=== PATIENT | male | born 1940 | race Two or more races ===

== ENCOUNTER → 2025-02-17 | Outpatient (CLI) | payer MEDICARE, SELFPAY ==
[2025-02-17 12:19] LABS: Basophils % (Auto) 1 % (0-2.5); Eosinophils # (Auto) 0.1 Thou/mm3 (0.0-0.5); Eosinophils % (Auto) 2 % (0-10); Hematocrit 37.7 % (41.0-53.0); Hemoglobin 12.4 g/dL (13.5-16.0); Immature Granulocytes % (Auto) 0 % (0-0); Immature Granulocytes Auto 0.01 Thou/mm3 (0.00-0.00); Lymphocytes # (Auto) 1.9 Thou/mm3 (1.0-4.8); Lymphocytes % (Auto) 32 % (10-50); Mean Corpuscular HGB Conc 32.9 g/dl (31.0-37.0); Mean Corpuscular Hemoglobin 29.2 pg (25.0-35.0); Mean Corpuscular Volume 89 fL (80-100); Monocytes # (Auto) 0.4 Thou/mm3 (0.0-0.8); Monocytes % (Auto) 7 % (0-12); Neutrophils # (Auto) 3.4 Thou/mm3 (1.8-7.7); Neutrophils % (Auto) 58 % (37-80); Nucleated Red Blood Cell % 0 /100 WBC (0); Platelet Count 212 Thou/mm3 (140-440); RDW Standard Deviation 44.3 fL (35.1-43.9); Red Blood Count 4.24 Miln/mm3 (4.50-5.90); White Blood Count 5.8 Thou/mm3 (3.8-10.6)
[2025-02-17 12:32] LABS: Glucose Estimated Average 180 mg/dL (80-131); Hemoglobin A1C 7.9 % Hgb (4.8-6.0)
[2025-02-17 12:35] LABS: Prostate Specific Antigen < 0.10 ng/mL (0-4.00)
[2025-02-17 12:50] LABS: Alanine Aminotransferase 9 U/L (10-49); Albumin, Serum 4.3 gm/dL (3.4-4.8); Albumin/Globulin Ratio 1.7 (1.2-2.2); Alkaline Phosphatase 61 U/L (46-116); Anion Gap 8 (7-16); Aspartate Amino Transferase 20 U/L (0-34); BUN/Creatinine Ratio 18 Ratio (12-20); Bilirubin,Total 0.6 mg/dL (0.3-1.2); Blood Urea Nitrogen 37 mg/dL (9-23); Calcium 9.2 mg/dL (8.3-10.6); Calcium (Corrected) 9.2 mg/dL (8.5-10.1); Cardiac Risk Estimate 3.9 RATIO (4.0-6.7); Chloride 109 mMol/L (98-107); Cholesterol 124 mg/dL (132-200); Creatinine (Component) 2.1 mg/dL (0.6-1.3); Globulin 2.5 gm/dL (2.3-3.5); Glucose 144 mg/dL (74-106); HDL Cholesterol 32 mg/dL (40-60); LDL Cholesterol,Calculated 73 mg/dL (0-130); Osmolality,Calculated 292 (275-295); Potassium 4.6 mMol/L (3.4-5.1); Sodium 141 mMol/L (136-145); Thyroid Stimulating Hormone 1.52 uIU/mL (0.55-4.78); Total Protein 6.8 gm/dL (5.7-8.2); Triglycerides 97 mg/dL (30-150); eGFR 31 See Note
== END | disposition home or self-care (01) ==
LOC: COPL 10:48
PROVIDERS: PCP Family Medicine; Referring Provider Family Medicine; Visit Provider Family Medicine
DX: E11.65 Type 2 diabetes mellitus with hyperglycemia (principal); R97.20 Elevated prostate specific antigen [PSA]; R94.6 Abnormal results of thyroid function studies
CPT/HCPCS: 36415; 80053; 80061; 83036; 84153; 84443; 85025

== ENCOUNTER → 2025-03-30 | Outpatient (CLI) | payer MEDICARE, SELFPAY ==
--- NOTE | 2025-03-30 14:35 | XR_ITS ---
Examination: Knee, right , 3 views Technique: Knee AP, lateral, oblique 3 views Date and time of exam: March 30, 2025 1453 hours INDICATIONS: Right knee pain beginning 2 days ago. FINDINGS: Mild tricompartment osteoarthritis Small knee effusion No fracture IMPRESSION: Mild tricompartment osteoarthritis
== END | disposition home or self-care (01) ==
LOC: CDIM 14:06
PROVIDERS: PCP Family Medicine; Referring Provider Family Medicine; Visit Provider Family Medicine
DX: M17.11 Unilateral primary osteoarthritis, right knee (principal)
CPT/HCPCS: 73562

== ENCOUNTER 2025-11-06 13:21 | Emergency (ER) | payer MEDICARE, SELFPAY ==
[2025-11-06 13:52] VITALS: BP 178/83; BP 186/94; PULSE 73; RESP 20; TEMP 36.7; O2SAT 97
--- NOTE | 2025-11-06 14:01 | XR_ITS ---
Examination: CT brain head without contrast. 2-D sagittal coronal reconstructions Date and time of exam: November 06, 2025, 1412 hours INDICATIONS: Patient fell today with injury to the head, head pain CTDI: vol (mGy): 53.9 DLP: (mGycm): 1094 Technique: Multiple CT axial sections of the brain have been obtained, 5 mm slice thickness. Contrast has not been administered. 2-D sagittal, coronal reconstructions have been obtained Low dose protocols were performed. One or more of the following dose reduction techniques were used; automated exposure control, adjustment of the mA and/or KV according to patient size, use of iterative reconstruction technique. Findings: No significant ventricular enlargement. Intra-axial or extra-axial hemorrhage density is not seen. No mass effect or midline shift Basal cisterns are not remarkable. Fourth ventricle is midline. Cranial vault intact. Significant ethmoid left sphenoid sinusitis as well as right maxillary sinusitis Impression: Negative for acute hemorrhage, mass effect or midline shift
--- NOTE | 2025-11-06 14:01 | XR_ITS ---
Examination: CT cervical spine without contrast 2-D sagittal reconstructions 2-D coronal reconstructions 3-D reconstructions. Exam date and time: November 06, 2025, 1412 hours INDICATIONS: Ground-level fall today with injury to the neck, neck pain CTDI:vol (mGy) 16.9 DLP: (mGycm) 371 Technique: Multiple 2 mm axial sections of the cervical spine have been obtained. The coronal and sagittal reconstructions have been obtained. 3-D reconstructions have been obtained. Low dose protocols were performed. One or more of the following dose reduction techniques were used; automated exposure control, adjustment of the mA and/or KV according to patient size, use of iterative reconstruction technique. Findings: Axial sections demonstrate intact base of the skull. C1 exhibit satisfactory relationship to the odontoid. No acute cervical vertebral body fracture seen. Alignment posterior spinous processes satisfactory. Moderate cervical spondylosis Diffuse cervical degenerative disc disease most severe L3-L4 C6-C7 Impression: No acute cervical fracture.
--- NOTE | 2025-11-06 14:03 | EDNOTE_ITS ---
ED Fall Injury RME/HPI General Chief Complaint: Fall Stated Complaint: PT FELL & HIT BACK OF HEAD. PT SPEECH SLURRED Time Seen by Provider: 11/06/25 13:47 Arrival date/time: 11/06/25 13:21 This is an 85-year-old male that comes into the emergency room with complaints bending over while letting the chickens out and hit the back of his head when he was standing back up. Patient states he struck his back of the head and posterior neck. Patient complains of a headache and some neck pain. Per patient's daughter patient was slightly confused but patient is back to baseline according to daughter. Patient has no focal deficits. Patient speaking in clear sentences. Patient denies any nausea vomiting. Patient denies any loss of consciousness. Related Data Home Medications ?Medication ?Instructions ?Recorded ?Confirmed amlodipine 10 mg tablet 10 mg PO QDAY 10/29/1911/12 benazepril 40 mg tablet 40 mg PO QDAY 10/29/1911/12 acetaminophen 500 mg capsule 500 mg PO QID PRN pain 11/12/25 clonazepam 1 mg tablet 1 mg PO HS 11/12/25 11/12/25 linagliptin 5 mg tablet (Tradjenta) 5 mg PO QDAY 11/1211/12/25 Previous Rx's ?Medication ?Instructions ?Recorded aspirin 81 mg tablet,delayed 81 mg PO DAILY 1 month #3 0 tabs 11/12/25 release Allergies Allergy/AdvReac Type Severity Reaction Status Date / Time No Known Allergies Allergy Verified 11/09/25 11:17 Review of Systems Review of Systems Systems Reviewed: All systems reviewed, normal except as documented Past Medical History Past Medical History Comments [facility] COMMENT: Reports history of high blood pressure and diabetes ED Exam Narrative Physical exam: VITAL SIGNS: Reviewed. GENERAL APPEARANCE: Alert and interactive, follows commands, no acute distress HEAD AND FACE: Contusion to the occipital area, mild abrasion ENT: PERRL, conjuctiva pink and clear, eyelid no trauma, Mucous membrane moist. NECK: Supple, nontender, no nuchal rigidity. CHEST: No tenderness, no crepitus, no paradoxical movement, no retractions. LUNGS: breathing even and unlabored HEART: Regular rate, cap refill less than 2 seconds ABDOMEN: Soft, nondistended, nontender to palpation NEUROLOGICAL: Gross motor function intact sensory function intact, Appropriate for age. MUSCULOSKELETAL: low back nontender, full range of motion. no midline tenderness, no meningismus, no step offs EXTREMITIES: No redness no swelling no skin breakdown on bilateral foot and leg. Distal neurovascular status intact bilateral foot SKIN: Color pink, dry, Course Quality Measures none Orders Category Date Time Status Wound Care NOW Care 11/06/25 16:[address] cervical spine wo con Stat Exams 11/06/25 14:[address] head/brain wo con Stat Exams 11/06/25 14:01 Completed Acetaminophen Tab [Tylenol ES Tab] Med 11/06/25 16:47 Discontinued 1,000 mg PO X1 ONE Vital Signs Vital signs: Vital Signs Temperature 98.1 F 11/06/25 13:52 Pulse Rate 73 11/06/25 13:52 Respiratory Rate 20 11/06/25 13:52 Blood Pressure 178/83 H 11/06/25 13:52 Pulse Oximetry (%) 97 11/06/25 13:52 Oxygen Delivery Method Room Air 11/06/25 13:52 Fall MDM Narrative MDM Narrative:: cervical spine ct : Findings: Axial sections demonstrate intact base of the skull. C1 exhibit satisfactory relationship to the odontoid. No acute cervical vertebral body fracture seen. Alignment posterior spinous processes satisfactory. Moderate cervical spondylosis Diffuse cervical degenerative disc disease most severe L3-L4 C6-C7 Impression: No acute cervical fracture. head ct: Findings: No significant ventricular enlargement. Intra-axial or extra-axial hemorrhage density is not seen. No mass effect or midline shift Basal cisterns are not remarkable. Fourth ventricle is midline. Cranial vault intact. Significant ethmoid left sphenoid sinusitis as well as right maxillary sinusitis Impression: Negative for acute hemorrhage, mass effect or midline shift patient ambulatory. Patient has no focal deficits. Patient complains of a mild headache where he hit his head. Did not appreciate any slurred speech patient states that he has not had slurred speech according to family member patient really just did not want to talk. Reviewed CAT scan with patient and family member. Patient to told to follow-up with primary provider in 1 to 2 days. to the emergency room symptoms change or worsen patient and family member verbalized understanding and feel comfortable plan of care. Patient data External records reviewed:: [facility] previous records Clinical information provided by:: patient Social determinants that could affect healthcare access:: none Patient has the following chronic illnesses:: See note How is presenting disease/condition affected by chronic disease/condition?: no chronic disease Evaluation data The following diagnostics were reviewed and interpreted by me:: radiology exam(s) Lab and/or radiology exams considered but not ordered:: None Interpretation Summary: See note Medications / Prescriptions Medications or Prescriptions considered but not ordered:: None Medication administrations:: Medication Administration History Discontinued Medications Acetaminophen (Acetaminophen 500 Mg Tablet) 1,000 mg PO X1 ONE Stop: 11/06/25 16:48 Last Admin: 11/06/25 17:24 Dose: 1,000 mg Documented By: OA See MAR Consultations Consultation(s) initiated? (list below): No Diagnosis Fall Differential Diagnosis: syncope and other (Contusion, abrasion, laceration) Most likely diagnosis given after review of the tests above:: Contusion Admission Indicated Admission indicated?: not indicated Admission Request Was there a request for admission?: No Disposition Plan Disposition Plan: Discharge Discharge Attestation Discharge Attestation: The patient and all family members were given an opportunity to ask questions and understood the discharge instructions. Discharge instructions specifically effects, indications for sooner follow up or return to the emergency department, and the expected course of current diagnosis. Patient condition: Stable Discharge Plan Plan Patient Disposition: HOME (Self Care) Patient condition on transfer: Stable Prescriptions/Referrals Prescriptions/Med Rec: No Action amlodipine 10 mg Tablet 10 mg PO QDAY benazepril 40 mg Tablet 40 mg PO QDAY Tradjenta 5 mg tablet 5 mg PO QDAY Patient Comments: TAKE 1 TABLET BY MOUTH EVERY DAY clonazepam 1 mg tablet 1 mg PO HS Patient Comments: TAKE 1 TABLET BY MOUTH AT BEDTIME NEEDED FOR ANXIETY acetaminophen 500 mg capsule 500 mg PO QID PRN (Reason: pain) aspirin 81 mg Tablet,Delayed Release (Dr/Ec) 81 mg PO DAILY 30 Days Qty: 30 1RF Referrals: George Silva MD [Primary Care Provider, Family Practice] - In 1 week Problem List Clinical Impression: Contusion of neck, Contusion of head Patient/Caregiver Discharge Instructions Discharge Activity: activity as tolerated Education Materials: ED Head Injury (Adult) Additional Instructions: Julianna un neri con carson medico de cabecera en las proximas 24-48 horas. Regrese a la shi de emergencias si hay evidencia de que los signos o sintomas empeoran. Print Language: Chinese Stand Alone Forms: [employer] Award Info., Patient Portal Info Letter PA/FARM FACILITY MANAGER Supervising Physician PA/FARM FACILITY MANAGER Supervising Physician: shayy
--- NOTE | 2025-11-06 15:19 | PRELIM_ITS ---
CT scan of the head without intravenous contrast (axial sections with sagittal and coronal reformats) November 06, 2025 1412 hours Clinical History: Trauma Comparison: No prior study is available for comparison. Findings: There is no evidence of intracranial hemorrhage, mass effect or midline shift. There are periventricular white matter hypodensities, compatible with chronic small vessel ischemia. The CSF spaces are prominent consistent with volume loss. The calvarium is intact. There is mild mucosal thickening in bilateral ethmoid and right maxillary sinuses. There is moderate mucosal thickening in left sphenoid sinus. The mastoid air cells and the other visualized paranasal sinuses are clear. Impression: No evidence of intracranial hemorrhage, midline shift or calvarial fracture. Sinus disease as described above. Report Electronically Signed By: Beverly Anderson 11/06/2025 3:18:45 PM [EST]
--- NOTE | 2025-11-06 15:23 | PRELIM_ITS ---
CT scan of the cervical spine without intravenous contrast (axial sections with sagittal and coronal reformats) November 06, 2025 1412 hours Clinical History: trauma Comparison: No prior study is available for comparison. Findings: The bones are osteopenic. There is no fracture or traumatic subluxation. There is grade1 anterolisthesis of C4 on C5. There is partial fusion of the facet joints from C2 - C3 level. There is partial ossification of the nuchal ligament at the C4-C5 level. There are multilevel degenerative changes in the form of marginal osteophytes, decreased disc height, C3-C4 through C6-C7 disc osteophyte complexes are noted with associated uncinate hypertrophy and facet arthropathy causing mild spinal canal stenosis and bilateral neural foraminal stenosis. The prevertebral soft tissues are unremarkable. Impression: No evidence of fracture or traumatic subluxation. Degenerative changes as described above. Report Electronically Signed By: Beverly Anderson 11/06/2025 3:22:35 PM [EST]
[2025-11-06] MEDS: ACETAMINOPHEN 500 MG TABLET 1000 MG PO (17:24)
[2025-11-06 17:25] VITALS: BP 124/82; PULSE 78
== END 2025-11-06 17:25 | disposition home or self-care (01) ==
PROVIDERS: Emergency Provider Emergency Medicine; PCP Family Medicine
DX: S10.93XA Contusion of unspecified part of neck, initial encounter (principal); S00.93XA Contusion of unspecified part of head, initial encounter; W22.8XXA Striking against or struck by other objects, initial encounter; Y93.89 Activity, other specified
CPT/HCPCS: 70450; 72125; 99282; A9270

== ENCOUNTER 2025-11-09 11:13 | Emergency (ER) | payer MEDICARE, SELFPAY ==
[2025-11-09 11:14] VITALS: BMI 30.2
--- NOTE | 2025-11-09 11:21 | PD.EDADULT ---
ED General RME/HPI General Chief complaint: Fall Stated complaint: DIZZY WEAK NECK/BACK PAIN S/P FALL Time Seen by Provider: 11/09/25 11:15 Related Data Home Medications ?Medication ?Instructions ?Recorded ?Confirmed metformin 500 mg tablet,extended 500 mg PO DAILY ##0 03/15/10 05/28/22 release 24 hr (Glucophage XR) amlodipine 10 mg tablet 10 mg PO QDAY 10/29/19 05/28/22 benazepril 40 mg tablet 40 mg PO QDAY 10/29/19 05/28/22 gabapentin 100 mg capsule 200 mg PO QDAY 10/29/19 05/28/22 furosemide 40 mg tablet 40 mg PO QDAY 12/21/21 05/28/22 Allergies Allergy/AdvReac Type Severity Reaction Status Date / Time No Known Allergies Allergy Verified 11/09/25 11:17 Past Medical History Past Medical History NEUROLOGIC: Negative Neurological Disorders or Seizures CARDIAC: Positive Cardiac Disorders, Angina, Hypercholesterolemia and Hypertension; Negative Congestive Heart Failure RESPIRATORY: Negative Chronic Obstructive Pulmonary Disease (COPD) GASTROINTESTINAL: Positive Gastrointestinal Disorders GENITOURINARY: Negative Genitourinary Disorders or Renal Disease MUSCULOSKELETAL: Positive Musculoskeletal Disorders, Arthritis and Gout ENT: Positive Cataracts ENDOCRINE: Positive Endocrine Disorders and Diabetes Mellitus Type 2; Negative Diabetes Mellitus Type 1 HEMATOLOGIC: Negative Blood Disorders or Anemia PSYCHO/SOCIAL: Positive Depression and Anxiety OTHER HISTORY: Negative Hospitalization, Falls, Blood Transfusions, Anesthesia Reactions or Cancer Social History SMOKING STATUS: Never smoker Course Course Course Narrative: I examined the wrist, the patient has had no other complaints prior to stop talking to me. Patient is medically cleared for incarceration. Quality Measures none Orders Category Date Time Status Bedside COVID-19 Antigen Test NOW Care 11/09/25 12:00 Completed Bedside Influenza A&B Antigen Test NOW Care 11/09/25 12:00 Completed EKG (ED ONLY) *Do not use* NOW Care 11/09/25 12:[address] head/brain wo con Stat Exams 11/09/25 12:00 Completed EKG (ED Only) Stat Exams 11/09/25 12:00 Draft XR chest 1V portable Stat Exams 11/09/25 12:00 Completed Ammonia Stat Lab 11/09/25 12:53 Completed BNP [B-Type Natriuretic Peptide] Stat Lab 11/09/25 12:53 Completed Beta Hydroxybutyrate Stat Lab 11/09/25 12:53 Completed Bilirubin,Direct Stat Lab 11/09/25 12:53 Completed CBC Stat Lab 11/09/25 12:53 Completed CMP [Comprehensive Metabolic Panel] Stat Lab 11/09/25 12:53 Completed CRP [C-Reactive Protein] Stat Lab 11/09/25 12:53 Completed ESR [Sed Rate (ESR)] Stat Lab 11/09/25 12:53 Completed Hemoglobin A1C [Glycohemoglobin w (eAG)] Stat Lab 11/09/25 12:53 Completed Magnesium Stat Lab 11/09/25 12:53 Completed Procalcitonin Stat Lab 11/09/25 12:53 Completed TSH [Thyroid Stimulating Hormone] Stat Lab 11/09/25 12:53 Completed Troponin I Stat Lab 11/09/25 12:53 Completed UA, C/S IF [Urinalysis, C/S if Indicated] Stat Lab 11/09/25 14:39 Completed ACETAMINOPHEN w/COD 300-30 [Tylenol w/Cod #3] Med 11/09/25 11:59 Discontinued 2 tab PO X1 ONE Ondansetron Odt [Zofran Odt] Med 11/09/25 11:59 Discontinued 4 mg PO X1 ONE Vital Signs Vital signs: Vital Signs Temperature 97.5 F 11/09/25 11:46 Pulse Rate 62 11/09/25 11:46 Respiratory Rate 20 11/09/25 11:46 Blood Pressure 158/72 H 11/09/25 11:46 Pulse Oximetry (%) 97 11/09/25 11:46 Oxygen Delivery Method Room Air 11/09/25 11:46 Discharge Plan Plan Patient Disposition: HOME (Self Care) Patient condition on transfer: Stable Prescriptions/Referrals Prescriptions/Med Rec: No Action furosemide 40 mg tablet 40 mg PO QDAY metformin [Glucophage XR] 500 MG tablet extended release 24 hr 500 mg PO DAILY Qty: 0 amlodipine 10 mg Tablet 10 mg PO QDAY gabapentin 100 mg Capsule 200 mg PO QDAY benazepril 40 mg Tablet 40 mg PO QDAY Problem List Clinical Impression: Concussion Patient/Caregiver Discharge Instructions Discharge Activity: activity as tolerated Education Materials: ED Concussion Additional Instructions: Discharge Instructions from Dr. Oneil printed for you: 1. After evaluation, there is no life-threatening condition. Such as stroke or brain tumor or intracranial bleeding or heart attack. 2. The symptoms of weakness and confusion are due to concussion. We can potentially have the symptoms for weeks and months. 3. Slowly increase physical activity daily. Prolonged inactivity is terrible for the body. 4. Eat regular nutritious meals. For good hydration, increase oral fluid and maintain clear urine. If dark or yellow, increase oral fluid. 5. See a private doctor on 11/11/2025 for recheck. Ask to review all test results and official radiology reports, to make sure you receive all necessary follow-ups and monitoring. Ask for help until we are completely better. 6. Seek immediate medical care with worsening or with any concerns. Print Language: Pakistani Stand Alone Forms: [employer] Award Info., Patient Portal Info Letter MDM Medication Administration(s) Medication Administration History Discontinued Medications Acetaminophen/Codeine Phosphate (Acetaminophen W/Cod 300-30 Tablet) 2 tab PO X1 ONE Stop: 11/09/25 12:00 Last Admin: 11/09/25 13:31 Dose: 2 tab Documented By: Ondansetron HCl (Ondansetron Odt 4 Mg Tabrap) 4 mg PO X1 ONE; Protocol Stop: 11/09/25 12:00 Last Admin: 11/09/25 13:30 Dose: 4 mg Documented By:
[2025-11-09 11:46] VITALS: BP 158/72; PULSE 62; RESP 20; TEMP 36.4; O2SAT 97; BMI 30.5
--- NOTE | 2025-11-09 12:00 | XR_ITS ---
Study: Chest 1 view. INDICATION: Shortness of breath for 5 days. FINDINGS: A PA upright chest radiograph at 1210 hours 09 November 2025 demonstrates fully expanded lungs free from alveolar infiltrates or nodules. There are no effusions. The heart is normal in size and contour. The aortic arch is calcified and the descending segment is tortuous. Peripheral vascularity is normal in appearance. Superior mediastinal structures are narrow. There is no hilar adenopathy. IMPRESSION: No acute diagnostic abnormality.
--- NOTE | 2025-11-09 12:00 | EKG_ITS ---
[facility] Test Date: 2025-11-09 Pat Name: QASIM OLIVO Department: Room: - Gender: Male Molder Inflated Ball: : 1940 Requested By: Kilo Larson Order Number: [id number] Reading MD: Kilo Larson Measurements Intervals Allison Rate: 57 P: 8 FL: 188 QRS: -42 QRSD: 174 T: 134 QT: 448 QTc: 440 Interpretive Statements SINUS BRADYCARDIA WITH OCCASIONAL VENTRICULAR PREMATURE COMPLEXES LEFT AXIS DEVIATION [QRS AXIS < -30] LEFT BUNDLE BRANCH BLOCK [120+ ms QRS DURATION, 80+ ms Q/S IN V1/V2, 85+ ms R IN I/aVL/V5/V6] No previous ECG available for comparison /[id number]/[email or web address]/[id number].pdf
--- NOTE | 2025-11-09 12:00 | XR_ITS ---
Study: Head CT. INDICATION: Pain in laceration at top of head following a fall this day. TECHNIQUE: 5 mm slice thickness without contrast. 5 mm sagittal and coronal reformats. 3D surface reconstruction of the skull with rotating presentation. Radiation dose 1022 mGy centimeters with dose reduction technique. 326 images at 1258 hours 09 November 2025. FINDINGS: The lateral ventricles are normal in size and contour. There is no midline shift, intracranial bleed, mass, cortical edema. A few punctate calcifications are noted reflecting old granulomatous or parasitic exposure. There is mild frontoparietal cortical atrophy. The white-galindo junctions are well seen. There is no focal lesion of the brainstem or cerebellum. The scalp, skull, sinuses and mastoid air cells are normal. The sella turcica and its contents are normal. Mild calcification is noted at the cavernous carotid arteries. IMPRESSION: 1. No acute diagnostic abnormality. 2. Old granulomatous or parasitic exposure. 3. Atherosclerotic disease.
--- NOTE | 2025-11-09 12:04 | PD.EDFALL ---
ED Fall Injury RME/HPI General Chief Complaint: Fall Stated Complaint: DIZZY WEAK NECK/BACK PAIN S/P FALL Time Seen by Provider: 11/09/25 11:15 Arrival date/time: 11/09/25 11:13 RME / HPI RME / HPI Narrative: See [facility] for Dr. Oneil's HPI documentation. Related Data Home Medications ?Medication ?Instructions ?Recorded ?Confirmed metformin 500 mg tablet,extended 500 mg PO DAILY ##0 03/15/10 05/28/22 release 24 hr (Glucophage XR) amlodipine 10 mg tablet 10 mg PO QDAY 10/29/19 05/28/22 benazepril 40 mg tablet 40 mg PO QDAY 10/29/19 05/28/22 gabapentin 100 mg capsule 200 mg PO QDAY 10/29/19 05/28/22 furosemide 40 mg tablet 40 mg PO QDAY 12/21/21 05/28/22 Allergies Allergy/AdvReac Type Severity Reaction Status Date / Time No Known Allergies Allergy Verified 11/09/25 11:17 Review of Systems Review of Systems Systems Reviewed: All systems reviewed, normal except as documented Past Medical History Past Medical History CARDIAC: Positive Cardiac Disorders, Angina, Hypercholesterolemia and Hypertension GASTROINTESTINAL: Positive Gastrointestinal Disorders MUSCULOSKELETAL: Positive Musculoskeletal Disorders, Arthritis and Gout ENT: Positive Cataracts ENDOCRINE: Positive Endocrine Disorders and Diabetes Mellitus Type 2 PSYCHO/SOCIAL: Positive Depression and Anxiety Social History SMOKING STATUS: Never smoker ED Exam Narrative Physical exam: See [facility] for Dr. Oneil's physical exam documentation. Course Quality Measures none Orders Category Date Time Status Bedside COVID-19 Antigen Test NOW Care 11/09/25 12:00 Completed Bedside Influenza A&B Antigen Test NOW Care 11/09/25 12:00 Completed EKG (ED ONLY) *Do not use* NOW Care 11/09/25 12:[address] head/brain wo con Stat Exams 11/09/25 12:00 Completed EKG (ED Only) Stat Exams 11/09/25 12:00 Draft XR chest 1V portable Stat Exams 11/09/25 12:00 Completed Ammonia Stat Lab 11/09/25 12:53 Completed BNP [B-Type Natriuretic Peptide] Stat Lab 11/09/25 12:53 Completed Beta Hydroxybutyrate Stat Lab 11/09/25 12:53 Completed Bilirubin,Direct Stat Lab 11/09/25 12:53 Completed CBC Stat Lab 11/09/25 12:53 Completed CMP [Comprehensive Metabolic Panel] Stat Lab 11/09/25 12:53 Completed CRP [C-Reactive Protein] Stat Lab 11/09/25 12:53 Completed ESR [Sed Rate (ESR)] Stat Lab 11/09/25 12:53 Completed Hemoglobin A1C [Glycohemoglobin w (eAG)] Stat Lab 11/09/25 12:53 Completed Magnesium Stat Lab 11/09/25 12:53 Completed Procalcitonin Stat Lab 11/09/25 12:53 Completed TSH [Thyroid Stimulating Hormone] Stat Lab 11/09/25 12:53 Completed Troponin I Stat Lab 11/09/25 12:53 Completed UA, C/S IF [Urinalysis, C/S if Indicated] Stat Lab 11/09/25 14:39 Completed ACETAMINOPHEN w/COD 300-30 [Tylenol w/Cod #3] Med 11/09/25 11:59 Discontinued 2 tab PO X1 ONE Ondansetron Odt [Zofran Odt] Med 11/09/25 11:59 Discontinued 4 mg PO X1 ONE Vital Signs Vital signs: Vital Signs Temperature 97.5 F 11/09/25 11:46 Pulse Rate 62 11/09/25 11:46 Respiratory Rate 20 11/09/25 11:46 Blood Pressure 158/72 H 11/09/25 11:46 Pulse Oximetry (%) 97 11/09/25 11:46 Oxygen Delivery Method Room Air 11/09/25 11:46 Pulse ox is 97% on room air which is adequate. Fall MDM Narrative MDM Narrative:: This section includes all my notes and documentations, including HPI, PE, and ED course. Kilo Oneil MD HPI: 85-year-old male here with continued confusion and generalized weakness and headache and dizziness after falling with head injury several days ago. No speech or visual impairment. No loss of power in the arms or legs. No other complaints. ROS: All negative except as documented in HPI. Physical Exam: General:? Alert and oriented.? No acute distress.? Eyes:? Conjunctivae and lids clear.? EOMI.? PERRL. ENT:? No signs of head trauma. Neck:? Supple.? No tenderness. Heart:? RRR. Lungs:? No respiratory distress.? Good air movement.? No rhonchi, wheezing, rales.? Chest:? No tenderness. Abdomen:? Soft and nontender.? Normal bowel sounds.? No distension.? No rebound or guarding.? Back:? No tenderness.? Skin:? Warm and dry.? Neuro:? Alert and oriented X 3.? Cranial Nerves II-XII grossly intact.? No peripheral motor deficits. Musculoskeletal:? All major joints and bones are not tender with no limited ROM. I reviewed all diagnostic test results: My interpretation of the EKG is: Sinus bradycardia (57 bpm) with nonspecific ST-T changes.? My interpretation of the chest x-ray is: NAD. My review of the head CT report is NAD. Blood tests and urine tests unremarkable. Covid/Influenza are negative. At this point, diagnoses include: Concussion Treatment here included: Zofran ODT 4 mg Tylenol #3 X 2 He felt much better. Recommended supportive care. Based on my best medical judgment, made decision no further evaluation or treatment indicated at this time. Patient and family understands and agrees to the discharge instructions customized and printed, see below. Discharge Instructions from Dr. Oneil printed for you: 1. After evaluation, there is no life-threatening condition. Such as stroke or brain tumor or intracranial bleeding or heart attack. 2. The symptoms of weakness and confusion are due to concussion. We can potentially have the symptoms for weeks and months. 3. Slowly increase physical activity daily. Prolonged inactivity is terrible for the body. 4. Eat regular nutritious meals. For good hydration, increase oral fluid and maintain clear urine. If dark or yellow, increase oral fluid. 5. See a private doctor on 11/11/2025 for recheck. Ask to review all test results and official radiology reports, to make sure you receive all necessary follow-ups and monitoring. Ask for help until we are completely better. 6. Seek immediate medical care with worsening or with any concerns. Kilo Oneil MD Patient data External records reviewed:: [facility] previous records Clinical information provided by:: patient Social determinants that could affect healthcare access:: none Patient has the following chronic illnesses:: Hypertension How is presenting disease/condition affected by chronic disease/condition?: uneffected by Evaluation data The following diagnostics were reviewed and interpreted by me:: lab results, radiology exam(s) and EKG tracing(s) (My interpretation of the EKG is: Sinus bradycardia (57 bpm) with nonspecific ST-T changes.? Kilo Oneil MD) Lab and/or radiology exams considered but not ordered:: None Interpretation Summary: I reviewed all diagnostic test results: My interpretation of the EKG is: Sinus bradycardia (57 bpm) with nonspecific ST-T changes.? My interpretation of the chest x-ray is: NAD. My review of the head CT report is NAD. Blood tests and urine tests unremarkable. Covid/Influenza are negative. Medications / Prescriptions Medications or Prescriptions considered but not ordered:: None Medication administrations:: Medication Administration History Discontinued Medications Acetaminophen/Codeine Phosphate (Acetaminophen W/Cod 300-30 Tablet) 2 tab PO X1 ONE Stop: 11/09/25 12:00 Last Admin: 11/09/25 13:31 Dose: 2 tab Documented By: Ondansetron HCl (Ondansetron Odt 4 Mg Tabrap) 4 mg PO X1 ONE; Protocol Stop: 11/09/25 12:00 Last Admin: 11/09/25 13:30 Dose: 4 mg Documented By: Treatment here included: Zofran ODT 4 mg Tylenol #3 X 2 Consultations Consultation(s) initiated? (list below): No Diagnosis Fall Differential Diagnosis: syncope, concussion with loss of consciousness and concussion without loss of consciousness Most likely diagnosis given after review of the tests above:: At this point, diagnoses include: Concussion Admission Indicated Admission indicated?: not indicated Explain why admission is indicated or not indicated:: With significant improvement and no condition needing emergent intervention, there was no indication for admission. Admission Request Was there a request for admission?: No Disposition Plan Disposition Plan: Discharge Discharge Attestation Discharge Attestation: The patient and all family members were given an opportunity to ask questions and understood the discharge instructions. Discharge instructions specifically effects, indications for sooner follow up or return to the emergency department, and the expected course of current diagnosis. Patient condition: Stable Discharge Plan Plan Patient Disposition: HOME (Self Care) Patient condition on transfer: Stable Prescriptions/Referrals Prescriptions/Med Rec: No Action furosemide 40 mg tablet 40 mg PO QDAY metformin [Glucophage XR] 500 MG tablet extended release 24 hr 500 mg PO DAILY Qty: 0 amlodipine 10 mg Tablet 10 mg PO QDAY gabapentin 100 mg Capsule 200 mg PO QDAY benazepril 40 mg Tablet 40 mg PO QDAY Problem List Clinical Impression: Concussion Patient/Caregiver Discharge Instructions Discharge Activity: activity as tolerated Education Materials: ED Concussion Additional Instructions: Discharge Instructions from Dr. Oneil printed for you: 1. After evaluation, there is no life-threatening condition. Such as stroke or brain tumor or intracranial bleeding or heart attack. 2. The symptoms of weakness and confusion are due to concussion. We can potentially have the symptoms for weeks and months. 3. Slowly increase physical activity daily. Prolonged inactivity is terrible for the body. 4. Eat regular nutritious meals. For good hydration, increase oral fluid and maintain clear urine. If dark or yellow, increase oral fluid. 5. See a private doctor on 11/11/2025 for recheck. Ask to review all test results and official radiology reports, to make sure you receive all necessary follow-ups and monitoring. Ask for help until we are completely better. 6. Seek immediate medical care with worsening or with any concerns. Print Language: Japanese Stand Alone Forms: Caroline Award Info., Patient Portal Info Letter
[2025-11-09 13:05] LABS: Basophils # (Auto) 0.0 Thou/mm3 (0.0-0.2); Basophils % (Auto) 0 % (0-2.5); Eosinophils # (Auto) 0.2 Thou/mm3 (0.0-0.5); Eosinophils % (Auto) 3 % (0-10); Hematocrit 39.9 % (41.0-53.0); Hemoglobin 13.0 g/dL (13.5-16.0); Immature Granulocytes Auto 0.02 Thou/mm3 (0.00-0.00); Lymphocytes # (Auto) 1.9 Thou/mm3 (1.0-4.8); Lymphocytes % (Auto) 28 % (10-50); Mean Corpuscular HGB Conc 32.6 g/dl (31.0-37.0); Mean Corpuscular Hemoglobin 29.3 pg (25.0-35.0); Mean Corpuscular Volume 90 fL (80-100); Monocytes # (Auto) 0.6 Thou/mm3 (0.0-0.8); Monocytes % (Auto) 8 % (0-12); Neutrophils # (Auto) 4.2 Thou/mm3 (1.8-7.7); Neutrophils % (Auto) 61 % (37-80); Nucleated Red Blood Cell # 0.00 Thou/mm3 (0.00-0.00); Nucleated Red Blood Cell % 0 /100 WBC (0); Platelet Count 224 Thou/mm3 (140-440); RDW Standard Deviation 45.1 fL (35.1-43.9); Red Blood Count 4.43 Miln/mm3 (4.50-5.90); White Blood Count 6.9 Thou/mm3 (3.8-10.6)
[2025-11-09 13:08] LABS: Beta Hydroxybutyrate 0.1 mmol/L (<0.6)
[2025-11-09 13:24] LABS: B-Type Natriuretic Peptide 76 pg/mL (0-100)
[2025-11-09 13:30] LABS: Ammonia < 10 uMol/L (11-32)
[2025-11-09] MEDS: ONDANSETRON ODT 4 MG TABRAP PO (13:30)
[2025-11-09 13:31] LABS: Sed Rate (ESR) 22 mm/hr (0-20)
[2025-11-09] MEDS: ACETAMINOPHEN w/COD 300-30 TABLET 2 TAB PO (13:31)
[2025-11-09 13:39] LABS: Alanine Aminotransferase 14 U/L (10-49); Albumin, Serum 4.7 gm/dL (3.4-4.8); Albumin/Globulin Ratio 1.7 (1.2-2.2); Alkaline Phosphatase 67 U/L (46-116); Anion Gap 11 (7-16); Aspartate Amino Transferase 40 U/L (0-34); BUN/Creatinine Ratio 14 Ratio (12-20); Bilirubin,Direct 0.1 mg/dL (0.0-0.3); Bilirubin,Total 0.4 mg/dL (0.3-1.2); Blood Urea Nitrogen 23 mg/dL (9-23); C-Reactive Protein < 0.5 mg/dL (0.0-0.9); Calcium 9.2 mg/dL (8.3-10.6); Calcium (Corrected) 9.2 mg/dL (8.5-10.1); Carbon Dioxide 22.5 mMol/L (20.0-31.0); Chloride 106 mMol/L (98-107); Creatinine (Component) 1.7 mg/dL (0.6-1.3); Estimated Creatinine Clearance 27.8 mL/min (>60); Globulin 2.7 gm/dL (2.3-3.5); Glucose 160 mg/dL (74-106); Magnesium 1.9 mg/dL (1.6-2.6); Osmolality,Calculated 284 (275-295); Potassium 5.3 mMol/L (3.4-5.1); Procalcitonin < 0.04 ng/ml (0.0-0.49); Sodium 139 mMol/L (136-145); Thyroid Stimulating Hormone 2.98 uIU/mL (0.55-4.78); Total Protein 7.4 gm/dL (5.7-8.2); Troponin I < 0.020 ng/mL (0.0-0.045); eGFR 39 See Note
[2025-11-09 13:43] LABS: Glucose Estimated Average 131 mg/dL (80-131); Hemoglobin A1C 6.2 % Hgb (4.8-6.0)
[2025-11-09 14:43] LABS: Collection Type, Urine Clean Catch; Squamous Epithelial Cell,Urine 0 /hpf (0-5)
[2025-11-09 15:03] LABS: Bilirubin,Urine Negative (Negative); Blood,Urine Negative (Negative); Clarity,Urine Clear (Clear/Hazy); Color,Urine Lt-Yellow (Lt Yel-Yel); Culture Indicated,Urine Not Indicated; Glucose, Urine Negative (Negative); Ketones,Urine Negative (Negative); Leukocyte Esterase,Urine Negative (Negative); Nitrite,Urine Negative (Negative); PH,Urine 5.5 (5.0-7.0); Protein,Urine Trace (Neg - Trace); RBC,Urine < 1 /hpf (0-3); Specific Gravity,Urine 1.013 (1.001-1.035); Urobilinogen,Urine Negative mg/dL (0.0-1.0); WBC,Urine < 1 /hpf (0-5)
== END 2025-11-09 14:48 | disposition home or self-care (01) ==
PROVIDERS: Emergency Provider Emergency Medicine; PCP Family Medicine
DX: S06.0X0A Concussion without loss of consciousness, initial encounter (principal); R00.1 Bradycardia, unspecified; I49.3 Ventricular premature depolarization; I44.7 Left bundle-branch block, unspecified; R06.02 Shortness of breath; I10 Essential (primary) hypertension; E78.00 Pure hypercholesterolemia, unspecified; W19.XXXA Unspecified fall, initial encounter
CPT/HCPCS: 36415; 70450; 71045; 80053; 81001; 82010; 82140; 82248; 83036; 83735; 83880; 84145; 84443; 84484; 85025; 85652; 86140; 87502; 87635; 93005; 99283; Q0162; A9270